=== PATIENT | male | born 1955 | race African-American/Black ===

== ENCOUNTER 2021-08-01 17:50 | Emergency (ER) | payer OTHER, MEDICAID ==
[~2021-08-01] VITALS: Ht 180.3 cm; Wt 77.0 kg
[2021-08-01] MEDS ORDERED: KETOROLAC 30MG/ML VIAL IV STA (18:42)
[2021-08-01 19:28] LABS: BASOPHILS % 0.6 % (0.0-2.0); EOSINOPHILS % 1.9 % (0.0-5.0); HEMATOCRIT. 40.9 % (42.0-52.0); MEAN CORPUSCULAR HEMOGLOBIN 33.4 pg (28.0-32.0); MEAN CORPUSCULAR VOLUME 97.3 fL (80.0-94.0); MEAN PLATELET VOLUME 9.6 fl (7.4-10.4); NEUTROPHILS % 59.5 % (40.0-76.0); PLATELET 146 x1000/uL (130-400); RED CELL DISTRIBUTION WIDTH 12.4 % (11.6-14.6)
[2021-08-01 19:30] LABS: CHLORIDE 106 mEq/L (98-107)
[2021-08-01 20:03] LABS: PROTHROMBIN TIME 10.5 sec (9.6-11.0)
[2021-08-01] MEDS ORDERED: OXYCODONE HCL/ACETAMINOPHEN 5/325MG TABLET PO ONE (20:45)
[2021-08-01] MEDS ORDERED: DEXAMETHASONE 4MG/ML 1ML VIAL IV ONE (20:45)
[2021-08-01] MEDS ORDERED: OXYC-100 PO ×2 (22:04)
[2021-08-01] MEDS ORDERED: IBUP-2028 PO ×2 (22:04)
[2021-08-01 23:12] VITALS: BP 144/68
[2021-08-03] MEDS ORDERED: IBUP-2028 PO (12:13)
[2021-08-03] MEDS ORDERED: OXYC-100 PO (12:13)
== END 2021-08-01 23:38 | disposition home or self-care (01) ==
LOC: ER 17:50
DX: M54.50 Low back pain, unspecified (principal); R06.00 Dyspnea, unspecified; I25.10 Atherosclerotic heart disease of native coronary artery without angina pectoris; Z98.61 Coronary angioplasty status
CPT/HCPCS: 36415; 71045; 74176; 80053; 83690; 85025; 85610; 93005; 96374; 96375; 99285; J1100; J1885